=== PATIENT | female | born 1970 | race Caucasian/White ===

== ENCOUNTER 2020-11-24 17:36 | Emergency (ER) | payer OTHER ==
[~2020-11-24 17:36] MED LIST: AZITHROMYCIN250 MG PO; BENTYL10 MG PO; CIPRO500 MG PO; METRONIDAZOLE500 MG PO; TESSALON PERLE100 MG PO; VENTOLIN HFA IN18 GM INH; ZOFRAN4 MG PO
[2020-11-24] MEDS ORDERED: PREDNISONE 20MG20 MG PO (18:45)
== END 2020-11-24 19:07 | disposition home or self-care (01) ==
LOC: FER 17:36
DX: M23.91 Unspecified internal derangement of right knee (principal)
CPT/HCPCS: 73564

== ENCOUNTER 2021-03-22 01:16 | Emergency (ER) | payer OTHER ==
[~2021-03-22 01:16] MED LIST changes: +PREDNISONE 20MG20 MG PO
[2021-03-22] MEDS ORDERED: IBUPROFEN800 MG PO (07:26)
[2021-03-22] MEDS ORDERED: VIBRAMYCIN100 MG PO (07:26)
[2021-03-22] MEDS ORDERED: NORCO 5-325 TA1 EACH PO (07:26)
[2021-03-22] MEDS ORDERED: PREDNISONE 20MG20 MG PO (07:26)
[2021-03-23] MEDS ORDERED: DICYCLOMINE HCL20 MG PO (13:26)
== END 2021-03-22 07:45 | disposition home or self-care (01) ==
LOC: FER 01:16
DX: J01.90 Acute sinusitis, unspecified (principal); H92.02 Otalgia, left ear; F17.200 Nicotine dependence, unspecified, uncomplicated
CPT/HCPCS: J0696; J1100; J1885

== ENCOUNTER 2021-03-23 11:04 | Emergency (ER) | payer OTHER ==
[~2021-03-23 11:04] MED LIST changes: +IBUPROFEN800 MG PO; +NORCO 5-325 TA1 EACH PO; +VIBRAMYCIN100 MG PO
[2021-03-23 11:46] LABS: BASOPHIL 0.2 % (0-2); EOSINOPHIL 0 % (0-5); HCT 41.6 % (37.0-47.0); HGB 14.1 g/dl (12.5-16.0); LYMPHOCYTE 8.3 % (15-48); MCH 32.2 pg (25.0-31.0); MCHC 33.9 g/dL (32.0-36.0); MONOCYTE 3.5 % (0-12); MPV 11.8 fL (6.0-9.5); NEUTROPHIL 87.5 % (41-80); NRBC 0; PLT 200 K/uL (150-400); RBC 4.38 M/uL (4.20-5.40); RDW 12.1 % (11.5-14.0); WBC 11.7 K/uL (4.0-10.5)
[2021-03-23 12:20] LABS: ALBUMIN 3.3 g/dL (3.4-5.0); BILIRUBIN - TOTAL 0.2 mg/dL (0.2-1.0); BUN/CREAT RATIO (CALC) 18.2 RATIO; CREATININE 0.66 mg/dL (0.51-0.95); POTASSIUM 3.9 mmol/L (3.5-5.1); TOTAL PROTEIN 6.3 g/dL (6.4-8.2)
[2021-03-23 12:23] LABS: BILIRUBIN NEGATIVE (NEGATIVE); BLOOD NEGATIVE Ery/uL (NEGATIVE); CLARITY CLEAR (CLEAR); COLOR YELLOW (YELLOW); GLUCOSE (U) NORMAL (NORMAL); LEUKOCYTES NEGATIVE Leu/uL (NEGATIVE); NITRITE NEGATIVE (NEGATIVE); PROTEIN NEGATIVE (NEGATIVE); SPECIFIC GRAVITY 1.025 (1.001-1.030); UROBILINOGEN 0.2 mg/dL (0.2-1.0)
[2021-03-23] MEDS ORDERED: DICYCLOMINE HCL20 MG PO (13:26)
== END 2021-03-23 13:41 | disposition home or self-care (01) ==
LOC: FER 11:04
PROVIDERS: Emergency Medicine
DX: K52.9 Noninfective gastroenteritis and colitis, unspecified (principal); N83.201 Unspecified ovarian cyst, right side; D25.9 Leiomyoma of uterus, unspecified; F17.200 Nicotine dependence, unspecified, uncomplicated; Z90.49 Acquired absence of other specified parts of digestive tract; Z87.19 Personal history of other diseases of the digestive system; Z98.890 Other specified postprocedural states
CPT/HCPCS: 36415; 80053; 81003; 82150; 83690; 85025; J7030; Q9967

== ENCOUNTER 2021-03-26 04:45 | Emergency (ER) | payer OTHER ==
[~2021-03-26 04:45] MED LIST changes: +DICYCLOMINE HCL20 MG PO
[2021-03-26 05:17] LABS: BASOPHIL 0.2 % (0-2); EOSINOPHIL 0 % (0-5); HCT 43.2 % (37.0-47.0); LYMPHOCYTE 12.3 % (15-48); MCH 32.1 pg (25.0-31.0); MCHC 34.7 g/dL (32.0-36.0); MCV 92.3 fL (78.0-100.0); MONOCYTE 7.8 % (0-12); MPV 11.6 fL (6.0-9.5); NEUTROPHIL 79.3 % (41-80); NRBC 0; PLT 193 K/uL (150-400); RBC 4.68 M/uL (4.20-5.40); RDW 12.1 % (11.5-14.0); WBC 12.3 K/uL (4.0-10.5)
[2021-03-26 05:54] LABS: ALBUMIN 3.1 g/dL (3.4-5.0); BILIRUBIN - TOTAL 0.4 mg/dL (0.2-1.0); BUN/CREAT RATIO (CALC) 22.2 RATIO; CREATININE 0.63 mg/dL (0.51-0.95); GLOBULIN (CALCULATION) 3.6 g/dL; POTASSIUM 3.7 mmol/L (3.5-5.1); TOTAL PROTEIN 6.7 g/dL (6.4-8.2)
[2021-03-26] MEDS ORDERED: ZOFRAN4 M1 PO (06:33)
[2021-03-26 06:47] LABS: BILIRUBIN NEGATIVE (NEGATIVE); BLOOD NEGATIVE Ery/uL (NEGATIVE); CLARITY CLEAR (CLEAR); COLOR YELLOW (YELLOW); GLUCOSE (U) NORMAL (NORMAL); LEUKOCYTES NEGATIVE Leu/uL (NEGATIVE); NITRITE NEGATIVE (NEGATIVE); PROTEIN NEGATIVE (NEGATIVE); UROBILINOGEN 0.2 mg/dL (0.2-1.0); pH 6.5 (5.0-9.0)
== END 2021-03-26 07:15 | disposition home or self-care (01) ==
LOC: FER 04:45
PROVIDERS: Emergency Medicine
DX: U07.1 COVID-19 (principal); F17.210 Nicotine dependence, cigarettes, uncomplicated
CPT/HCPCS: 36415; 80053; 81003; 83690; 85025; 94640; 94664; J2405; J7030; Q0169

== ENCOUNTER 2021-03-28 19:26 | Emergency (ER) | payer OTHER ==
[~2021-03-28 19:26] MED LIST changes: +ZOFRAN4 M1 PO
[2021-03-28 20:41] LABS: BASOPHIL 0.2 % (0-2); EOSINOPHIL 0.2 % (0-5); LYMPHOCYTE 22.5 % (15-48); MCHC 34.9 g/dL (32.0-36.0); MCV 91.7 fL (78.0-100.0); MONOCYTE 14.2 % (0-12); MPV 12.1 fL (6.0-9.5); NEUTROPHIL 62.3 % (41-80); NRBC 0; PLT 217 K/uL (150-400); RBC 4.69 M/uL (4.20-5.40); RDW 11.8 % (11.5-14.0); WBC 6.2 K/uL (4.0-10.5)
[2021-03-28 20:52] LABS: ALBUMIN 3.2 g/dL (3.4-5.0); BILIRUBIN - TOTAL 0.4 mg/dL (0.2-1.0); BUN/CREAT RATIO (CALC) 18.7 RATIO; CREATININE 0.75 mg/dL (0.51-0.95); GLOBULIN (CALCULATION) 3.6 g/dL; POTASSIUM 3.5 mmol/L (3.5-5.1); TOTAL PROTEIN 6.8 g/dL (6.4-8.2)
== END 2021-03-28 21:20 | disposition home or self-care (01) ==
LOC: FER 19:26
PROVIDERS: Emergency Medicine Emergency Medical Services
DX: U07.1 COVID-19 (principal); F17.210 Nicotine dependence, cigarettes, uncomplicated
CPT/HCPCS: 36415; 71045; 80053; 85025; J2930